=== PATIENT | female | born 1955 | race Caucasian/White ===

== ENCOUNTER → 2019-02-23 | Outpatient (CLI) | payer BC | LOC: M.RAD 07:57 | DX: Z12.31 Encounter for screening mammogram for malignant neoplasm of breast (principal) ==

== ENCOUNTER → 2019-10-22 | Outpatient (CLI) | payer BC, MEDICARE | LOC: M.CT 10-21 10:34 | DX: K57.30 Diverticulosis of large intestine without perforation or abscess without bleeding (principal); R20.0 Anesthesia of skin; R20.2 Paresthesia of skin; R59.0 Localized enlarged lymph nodes; M25.78 Osteophyte, vertebrae; R90.82 White matter disease, unspecified; R19.5 Other fecal abnormalities ==

== ENCOUNTER → 2019-10-26 | Outpatient (CLI) | payer BC, MEDICARE | LOC: M.LAB 08:24 | PROVIDERS: ATTEND Internal Medicine Gastroenterology | DX: Z01.812 Encounter for preprocedural laboratory examination (principal); K21.9 Gastro-esophageal reflux disease without esophagitis; R10.10 Upper abdominal pain, unspecified ==

== ENCOUNTER → 2019-11-02 | Outpatient (CLI) | payer BC, MEDICARE | LOC: M.ULTRA 08:38 | DX: K76.0 Fatty (change of) liver, not elsewhere classified (principal); N28.1 Cyst of kidney, acquired ==

== ENCOUNTER → 2019-11-04 | Outpatient (CLI) | payer BC, MEDICARE | LOC: M.NUC 10-28 09:49 | DX: R10.32 Left lower quadrant pain (principal); R11.0 Nausea ==

== ENCOUNTER → 2020-04-14 | Outpatient (CLI) | payer MEDICARE | LOC: M.LAB 16:35 | PROVIDERS: ATTEND Orthopaedic Surgery | DX: Z01.812 Encounter for preprocedural laboratory examination (principal); Z20.828 Contact with and (suspected) exposure to other viral communicable diseases ==